=== PATIENT | female | born 1945 | race Caucasian/White ===

== ENCOUNTER → 2018-05-05 | Outpatient (CLI) | payer MEDICARE, OTHER ==
--- NOTE | 2018-05-05 12:26 | Diagnostic Imaging Report ---
EXAM: Renal Ultrasound INDICATION: Chronic kidney disease. COMPARISON: None TECHNIQUE: Transverse and longitudinal images of the kidneys and bladder were obtained. FINDINGS: Right Kidney: Length: Measures 9.7 cm Appearance: Normal cortical echogenicity. Mildly prominent hypoechoic renal pyramids. Collecting system: No hydronephrosis Stones: None Cyst/Mass: None Left Kidney: Length: Measures 9.3 cm Appearance: Normal cortical echogenicity. Mildly prominent hypoechoic renal pyramids. Collecting system: No hydronephrosis Stones: None Cyst/Mass: None Bladder: Unremarkable in appearance. Bilateral ureteral jets are noted. IMPRESSION: No evidence of hydronephrosis or stone. Mildly prominent hypoechoic renal pyramids bilaterally, a nonspecific finding. Signed by: Dr. Ginna Holden MD on 05/05/2018 12:22 PM
== END ==
LOC: US 10:34
PROVIDERS: ATTEND Internal Medicine Nephrology
DX: N18.3 Chronic kidney disease, stage 3 (moderate) (principal)
CPT/HCPCS: 76770; 76857